=== PATIENT | female | born 1950 | race Caucasian/White ===

== ENCOUNTER 2017-05-08 00:58 | Observation (INO) | payer OTHER ==
[2017-05-08] VITALS (16 sets, daily range): BP systolic 99–161; BP diastolic 48–85; PULSE 45–78; RESP 12–24; TEMP 97.5–98; O2SAT 98–100
[~2017-05-08] VITALS: Ht 157.5 cm; Wt 57.3 kg
[2017-05-08] MEDS ORDERED: MULT-65 PO (01:11)
[2017-05-08] MEDS ORDERED: GLUC500T4 PO (01:11)
[2017-05-08] MEDS ORDERED: ASPI81CH37 CHEW (01:11)
[2017-05-08] MEDS ORDERED: NITR1SUB2 SL (01:11)
--- NOTE | 2017-05-08 01:21 | PD ---
HPI Chief Complaint: chest pain Time Seen by Provider: 01:08 Travel History International Travel<30 days: No Contact w/Intl Traveler<30days: No History of Present Illness HPI This is a 66-year-old female who presents to the emergency department with palpitations and subsequent chest tightness in the left side of her chest that lasted for about 15-20 minutes, constant, moderate severity, since subsiding. She says she felt a little bit sweaty when it occurred. She denies any shortness of breath or nausea. Her took her blood pressure twice and it was a little bit low. She took 81 mg of aspirin as well as a nitroglycerin pill that she had left over from 10 years ago. Then she developed a headache. She came to the emergency department. She has been told that her blood pressure has been running high. She denies any history of hyperlipidemia or diabetes. Both of her parents had heart attacks in their 60s. She denies smoking. She denies any recent long trips. Her last stress test was 10 years ago. [facility] Past Medical History Narrative Medical Borderline hypertension Social History Tobacco Use: No Allergies-Medications (Allergen,Severity, Reaction): Coded Allergies: No Known Allergies (Verified , 05/08/17) Reported Meds & Prescriptions Reported Meds & Active Scripts Active Reported Glucosamine-Chondroitin 500-400 Mg Tab 1 Tab PO DAILY Multi-Vitamin Daily (Multiple Vitamin) 1 Tab Tab 1 Tab PO DAILY Aspirin Low Dose (Aspirin) 81 Mg Chew 81 Mg CHEW DAILY Nitroglycerin SL (Nitroglycerin) 0.3 Mg Subl Unknown Dose SL DIRECTED PRN ONE TABLET UNDER THE TONGUE NEEDED FOR CHEST PAIN, MAY REPEAT EVERY FIVE MINUTES FOR A TOTAL OF 3 DOSES OR CALL 911 IF NO RELIEF Review of Systems Except as stated in HPI: all other systems reviewed are Neg Physical Exam Narrative GENERAL:Well appearing, no acute distress SKIN: Focused skin assessment warm and dry. HEAD: Atraumatic. Normocephalic. EYES: Pupils equal and round. No injection or drainage. ENT: Moist mucous membranes NECK: Trachea midline. CARDIOVASCULAR: Regular rate and rhythm. No murmur appreciated. Trace pitting edema bilaterally. RESPIRATORY: Clear to auscultation. Breath sounds equal bilaterally. GASTROINTESTINAL: Abdomen soft, non-tender, nondistended. MUSCULOSKELETAL: No obvious deformities. NEUROLOGICAL: Awake and alert. No obvious cranial nerve deficits. Moving all extremities. PSYCHIATRIC: Appropriate mood and affect; insight and judgment normal. Data Data Last Documented VS Vital Signs Date Time Temp Pulse Resp B/P Pulse Ox O2 Delivery O2 Flow Rate FiO2 05/08/17 01:58 58 16 136/70 100 Nasal Cannula 2 05/08/17 01:05 97.7 Orders Electrocardiogram (05/08/17 01:19) Complete Blood Count With Diff (05/08/17 01:19) Comprehensive Metabolic Panel (05/08/17 01:19) Troponin I (05/08/17 01:19) Chest, Single Ap (05/08/17 01:19) Ecg Monitoring (05/08/17 01:19) Bilateral Bp Monitoring (05/08/17:19) Iv Access Insert/Monitor (05/08/17:19) Oximetry (05/08/17 01:19) Oxygen Administration (05/08/17 01:19) Aspirin Chew (Aspirin Chew) (05/08/17 01:30) Sodium Chloride 0.9% Flush (Ns Flush) (05/08/17 01:30) Potassium Chloride Eff (K-Lyte Cl Eff) (05/08/17 02:15) Labs Laboratory Tests Test 05/08/17 01:20 White Blood Count 8.9 TH/MM3 Red Blood Count 4.43 MIL/MM3 Hemoglobin 13.6 GM/DL Hematocrit 40.0 % Mean Corpuscular Volume 90.2 FL Mean Corpuscular Hemoglobin 30.6 PG Mean Corpuscular Hemoglobin 33.9 % Concent Red Cell Distribution Width 12.6 % Platelet Count 287 TH/MM3 Mean Platelet Volume 8.1 FL Neutrophils (%) (Auto) 36.5 % Lymphocytes (%) (Auto) 49.4 % Monocytes (%) (Auto) 11.1 % Eosinophils (%) (Auto) 2.6 % Basophils (%) (Auto) 0.4 % Neutrophils # (Auto) 3.3 TH/MM3 Lymphocytes # (Auto) 4.4 TH/MM3 Monocytes # (Auto) 1.0 TH/MM3 Eosinophils # (Auto) 0.2 TH/MM3 Basophils # (Auto) 0.0 TH/MM3 CBC Comment DIFF FINAL Differential Comment Sodium Level 144 MEQ/L Potassium Level 3.3 MEQ/L Chloride Level 107 MEQ/L Carbon Dioxide Level 29.5 MEQ/L Anion Gap 8 MEQ/L Blood Urea Nitrogen 20 MG/DL Creatinine 0.72 MG/DL Estimat Glomerular Filtration 82 ML/MIN Rate Random Glucose 173 MG/DL Calcium Level 8.8 MG/DL Total Bilirubin 0.5 MG/DL Aspartate Amino Transf 30 U/L (AST/SGOT) Alanine Aminotransferase 33 U/L (ALT/SGPT) Alkaline Phosphatase 107 U/L Troponin I LESS THAN 0.02 NG/ML Total Protein 7.3 GM/DL Albumin 3.9 GM/DL MDM Medical Decision Making Medical Screen Exam Complete: Yes Emergency Medical Condition: Yes Interpretation(s) Afebrile, no tachycardia, hypertensive No leukocytosis Mild hypokalemia Troponin is normal EKG: Normal sinus rhythm, mild ST depression in the lateral leads Chest x-ray: No acute process Differential Diagnosis Acute coronary syndrome, anxiety, arrhythmia, pulmonary embolism, costochondritis Narrative Course This is a 66-year-old female who presents to the emergency department with chest discomfort involving her left chest associated with palpitations. She is placed in a monitor and an IV was established. Labs are reassuring. EKG is nonischemic. The description of her symptoms almost sounds like an arrhythmia that currently her EKG is normal. Patient will be kept on telemetry and admitted for serial cardiac enzymes and likely stress test in the morning. Diagnosis Primary Impression: Chest discomfort Admitting Information Admitting Physician Requests: Roxana Lanier MD May 08, 2017 01:21
[2017-05-08 01:30] LABS: AUTOMATED NEUTROPHIL # 3.3 TH/MM3 (1.8-7.7); BASOPHIL % 0.4 % (0.0-2.0); EOSINOPHIL # 0.2 TH/MM3 (0-0.4); EOSINOPHIL % 2.6 % (0.0-4.0); HEMO FLAGS DIFF FINAL; LYMPH % 49.4 % (9.0-44.0); LYMPHOCYTE # 4.4 TH/MM3 (1.0-4.8); MEAN CELL VOLUME 90.2 FL (80.0-100.0); MEAN CORPUSCULAR HEMOGLOBIN 30.6 PG (27.0-34.0); MEAN CORPUSCULAR HGB CONC 33.9 % (32.0-36.0); MONO % 11.1 % (0.0-8.0); NEUT % 36.5 % (16.0-70.0); PLATELET COUNT 287 TH/MM3 (150-450); RED BLOOD COUNT 4.43 MIL/MM3 (4.00-5.30); RED CELL DISTRIBUTION WIDTH 12.6 % (11.6-17.2); WHITE BLOOD COUNT 8.9 TH/MM3 (4.0-11.0)
[2017-05-08] MEDS ORDERED: ASPIRIN 81 MG CHEW TAB PO ONE (01:30)
[2017-05-08] MEDS ORDERED: SODIUM CHLORIDE 0.9% FLUSH 10 ML FLUSH IVF PRN (01:30)
[2017-05-08 01:47] LABS: CHLORIDE 107 MEQ/L (98-107); POTASSIUM 3.3 MEQ/L (3.5-5.1); SODIUM (NA) 144 MEQ/L (136-145)
--- NOTE | 2017-05-08 01:48 | RADRPT ---
EXAM DATE/TIME: 05/08/2017 01:29 [facility] COMPARISON: No previous studies available for comparison. INDICATIONS : Chest pain. MEDICAL HISTORY : None. SURGICAL HISTORY : None. ENCOUNTER: Initial ACUITY: 1 day PAIN SCORE: 7/10 LOCATION: Bilateral chest FINDINGS: A single view of the chest demonstrates the lungs to be symmetrically aerated without evidence of mas s, infiltrate or effusion. The cardiomediastinal contours are unremarkable. Osseous structures are intact. CONCLUSION: No acute disease. Ian Petersen MD on May 08, 2017 at 1:46 Board Certified Radiologist. This report was verified electronically.
[2017-05-08 01:51] LABS: ANION GAP 8 MEQ/L (5-15); BICARBONATE 29.5 MEQ/L (21.0-32.0); BLOOD UREA NITROGEN 20 MG/DL (7-18)
[2017-05-08 01:54] LABS: ALT (GPT) 33 U/L (10-53); AST (GOT) 30 U/L (15-37); GLOMERULAR FILTRATION RATE 82 ML/MIN (>89)
[2017-05-08 01:55] LABS: TOTAL BILIRUBIN ADULT 0.5 MG/DL (0.2-1.0)
[2017-05-08 01:56] LABS: ALKALINE PHOSPHATASE 107 U/L (45-117)
[2017-05-08] MEDS ORDERED: POTASSIUM CHLORIDE 25 MEQ EFFERVESCENT TAB PO ONE (02:15)
[2017-05-08] MEDS ORDERED: ONDANSETRON HCL 4 MG/2 ML VIAL IV PRN (07:45)
[2017-05-08] MEDS ORDERED: MORPHINE SULFATE 4 MG/ML INJ IV PRN (07:45)
[2017-05-08] MEDS ORDERED: ACETAMINOPHEN/HYDROcodone 325 MG/7.5 MG TAB PO PRN (07:45)
[2017-05-08] MEDS ORDERED: SODIUM CHLORIDE 0.9% FLUSH 10 ML FLUSH IV FLUSH PRN (07:45)
[2017-05-08] MEDS ORDERED: NITROGLYCERIN 0.4 MG SL 25 TABS/BTL SL PRN (07:45)
[2017-05-08] MEDS ORDERED: ACETAMINOPHEN 500 MG CPLT PO PRN (07:45)
[2017-05-08] MEDS: SODIUM CHLORIDE 0.9% FLUSH 10 ML FLUSH IV FLUSH SCH ×2 (08:16→23:55)
[2017-05-08] MEDS: MULTIVITAMIN TAB PO SCH (08:19)
[2017-05-08] MEDS: SODIUM CHLOR 0.9% 1000 ML INJ 1,000 ML IV SCH ×3 (08:19→23:51)
--- NOTE | 2017-05-08 10:44 | HHI.HP ---
HPI Service [facility] Primary [facility] Physician No Primary Care Physician Admission Diagnosis chest pain Diagnoses: (1) Palpitations Diagnosis: Principal (2) Chest tightness Diagnosis: Principal (3) Hypokalemia Diagnosis: Principal (4) Prerenal azotemia Diagnosis: Principal Chief Complaint: "palpitations, chest tightness" Travel History International Travel<30 Days: No Contact w/Intl Traveler <30 Da: No Traveled to Known Affected Are: No History of Present Illness Written by Corry Richey PA-C acting as scribe for on Dr. Donohue at ~1030. 66-year-old female with no significant medical history presents with complaint of heart palpitations and chest tightness. The patient states at 12: 30 AM this morning she started to feel heart palpitations and she states her blood pressure was dropping although does not recall what it was at the time. She states her chest became tight indicating over the left side of the chest lasting until 2 AM. She states the chest was sore after the episode of palpitations. She took some nitroglycerin that she had at home which she states helps slow the heart down. It is unclear if she was actually lightheaded but she states when she came in to the ED her eyes were not focused. She does admit to diaphoresis but denies any nausea or vomiting. She has no history of arrhythmias. She denies any sore throat, cough, abdominal pain, or diarrhea. She denies any history of diabetes, hypertension, hyperlipidemia, or thyroid disease. The patient states she did treadmill stress test in 2005 but was pushed too hard on the treadmill; she states her BP went up to 200/90. She did have a cardiac catheterization in 2006 which showed normal coronaries and this was performed due to abnormal stress test. Review of Systems Except as stated in HPI: all other systems reviewed are Neg Past Family Social History Past Medical History No significant medical history Past Surgical History Tumor removal from finger Reported Medications Reported Meds & Active Scripts Active Reported Apple cider tablets Glucosamine-Chondroitin 500-400 Mg Tab 1 Tab PO DAILY Multi-Vitamin Daily (Multiple Vitamin) 1 Tab Tab 1 Tab PO DAILY Aspirin Low Dose (Aspirin) 81 Mg Chew 81 Mg CHEW DAILY Nitroglycerin SL (Nitroglycerin) 0.3 Mg Subl Unknown Dose SL DIRECTED PRN ONE TABLET UNDER THE TONGUE NEEDED FOR CHEST PAIN, MAY REPEAT EVERY FIVE MINUTES FOR A TOTAL OF 3 DOSES OR CALL 911 IF NO RELIEF Allergies: Coded Allergies: No Known Allergies (Verified , 05/08/17) Family History Mother and Father with coronary artery disease, in their 60s. Father with hypertension. Grandmother of massive NM at age of 62. No history of sudden at a young age. Social History Patient denies smoking cigarettes. Denies alcohol use. Physical Exam Vital Signs Vital Signs Date Time Temp Pulse Resp B/P Pulse Ox O2 Delivery O2 Flow Rate FiO2 05/08/17 07:06 Room Air 05/08/17 07:06 97.5 68 14 118/58 99 Room Air 05/08/17 06:18 53 12 102/48 98 Room Air 05/08/17 04:42 56 16 99/55 100 Room Air 05/08/17 03:15 60 17 124/68 100 Room Air 05/08/17 01:58 58 16 136/70 100 Nasal Cannula 2 05/08/17 01:32 100 Nasal Cannula 2 05/08/17 01:28 72 140/77 129/75 05/08/17 01:05 97.7 78 17 161/85 100 Physical Exam GENERAL: This is a pleasant well-nourished, well-developed patient, in no apparent distress. SKIN: No rashes, ecchymoses or lesions. Warm and dry. HEAD: Atraumatic. Normocephalic. EYES: No scleral icterus. No injection or drainage. NECK: Trachea midline. CARDIOVASCULAR: Regular rate and rhythm without murmurs, gallops, or rubs. RESPIRATORY: Clear to auscultation. Breath sounds equal bilaterally. No wheezes , rales, or rhonchi. GASTROINTESTINAL: Normoactive bowel sounds. Abdomen soft, non-tender, nondistended. No guarding. MUSCULOSKELETAL: No lower extremity edema bilaterally. Distal pulses intact. No deformities noted. NEUROLOGICAL: Awake and alert. Motor grossly within normal limits. Normal speech. PSYCHIATRIC: Normal mood and affect. Laboratory Laboratory Tests Test 05/08/17 05/08/17 01:20 07:00 White Blood Count 8.9 Red Blood Count 4.43 Hemoglobin 13.6 Hematocrit 40.0 Mean Corpuscular Volume 90.2 Mean Corpuscular Hemoglobin 30.6 Mean Corpuscular Hemoglobin 33.9 Concent Red Cell Distribution Width 12.6 Platelet Count 287 Mean Platelet Volume 8.1 Neutrophils (%) (Auto) 36.5 Lymphocytes (%) (Auto) 49.4 Monocytes (%) (Auto) 11.1 Eosinophils (%) (Auto) 2.6 Basophils (%) (Auto) 0.4 Neutrophils # (Auto) 3.3 Lymphocytes # (Auto) 4.4 Monocytes # (Auto) 1.0 Eosinophils # (Auto) 0.2 Basophils # (Auto) 0.0 CBC Comment DIFF FINAL Differential Comment Sodium Level 144 Potassium Level 3.3 4.0 Chloride Level 107 Carbon Dioxide Level 29.5 Anion Gap 8 Blood Urea Nitrogen 20 Creatinine 0.72 Estimat Glomerular Filtration 82 Rate Random Glucose 173 Calcium Level 8.8 Total Bilirubin 0.5 Aspartate Amino Transf 30 (AST/SGOT) Alanine Aminotransferase 33 (ALT/SGPT) Alkaline Phosphatase 107 Troponin I LESS THAN 0.02 0.03 Total Protein 7.3 Albumin 3.9 Total Creatine Kinase 174 Result Diagram: 05/08/17 0120 05/08/17 0700 Imaging Last Impressions Chest X-Ray 05/08/17 0119 Signed Impressions: Service Date/Time: Monday, May 08, 2017 01:29 - CONCLUSION: No acute disease. Ian Petersen MD Assessment and Plan Assessment and Plan 66-year-old female with: Heart palpitations: Started earlier this morning. EKGs 2 personally interpreted with sinus rhythm and no ischemic changes. The patient does QTc close to upper normal limit. Palpitations could be due to hypokalemia causing long QT, anxiety, or less likely paroxysmal A.Fib. -Holter monitor ordered -TSH level -Mg level -Cardiology consult Chest tightness: Chest tightness seems to be related to palpitations. BP elevated at 161/85 on arrival. EKGs as above. Chest x-ray normal. First troponin less than 0.02. Second troponin 0.03. Patient received 162 mg of aspirin in the ED this morning. -Additional EKG, troponin, CK-MB ordered for 1300 hrs. -325 mg daily aspirin starting tomorrow -Nitroglycerin/[place]/morphine prn chest pain as indicated -Telemetry -Will defer stress testing decision to cardiology Hypokalemia: Mild 3.3-->4.0 after 25 mEq KCl in the ED. -Monitor and replete as needed. Check Mg level as indicated above. Pre-renal azotemia: BUN/Cr 20/0.72. -IV NS started at 60 mL/hr this morning. Can discontinue if patient hydrates adequately as no longer NPO at this time. -Repeat am BMP DVT prevention: SCDs. Discussed Condition With patient, This note was transcribed by [email or web address] [[email or web address] I, Dr. Roxi Donohue personally performed the history, physical exam, and medical decision making; and confirmed the accuracy of the information in the transcribed note. Authenticated by Dr. Roxi Donohue on 05/08/17 at 12:02. Corry Richey May 08, 2017 10:44 Roxi Donohue MD May 08, 2017 12:02
[2017-05-08 11:49] LABS: MAGNESIUM 2.1 MG/DL (1.5-2.5)
[2017-05-08 13:51] LABS: CREATINE KINASE 152 U/L (26-192)
[2017-05-08 14:04] LABS: CKMB 3.4 NG/ML (0.5-3.6)
[2017-05-09 00:20] VITALS: PULSE 47; RESP 15; TEMP 98
[2017-05-09 04:00] VITALS: BP 119/64; PULSE 49; RESP 16; TEMP 98; O2SAT 98
--- NOTE | 2017-05-09 05:13 | MB ---
cc: TALAT CRUZ MD DATE OF CONSULTATION May 08, 2017 REASON FOR CONSULTATION Palpitations and atypical chest pain. HISTORY OF PRESENT ILLNESS The patient is a pleasant 66-year-old woman in no known cardiac history but a history of hypertension as well as anxiety, who does admit to periodic panic attacks. The patient was sitting down to watch a movie when she felt her heart start to race. Her took her blood pressures and found her blood pressures to be low in the 90s systolic. He does not recall what the heart rate was at the time but believes it was within the normal range. The patient describes feeling chest tightness and a foggy sensation in her head and a constellation of these signs and symptoms caused them to present to the emergency room where she was admitted to observation. She is currently asymptomatic, denying any residual sensation of palpitations or chest pain, shortness breath, lightheadedness or dizziness. PAST MEDICAL HISTORY 1. Remote cardiac catheterization in 2005 showing normal coronary arteries. 2. Anxiety. ALLERGIES No known drug allergies. PHYSICAL EXAMINATION VITAL SIGNS: Afebrile, pulse 61, respiratory rate 16, BP 121/61, sating 100 on room air. GENERAL: Pleasant well-appearing woman in no distress. NECK: No JVD. LUNGS: Clear auscultation bilaterally. CARDIOVASCULAR: Regular rate and rhythm. No murmurs appreciated. ABDOMEN: Benign. EXTREMITIES: No edema. LABORATORY DATA Sodium 144, potassium 3.3 up to 4.0, chloride 107, bicarb 29.7, BUN 20, creatinine 0.72, glucose 173. Cardiac enzymes are negative x 3. EKG Sinus rhythm with no significant ST or T-wave changes. IMPRESSION AND RECOMMENDATIONS 1. Chest pain: The patient's chest pain is fairly atypical. Her EKG looks good and her cardiac enzymes are normal. I will have her undergo a nuclear stress test tomorrow. 1. Palpitations: The patient describes what sounds most likely to be sinus tachycardia. However, an atrial dysrhythmia is not out of the question. We will observe her on telemetry and potentially she could have an outpatient Holter monitor particularly if symptoms persist. If her nuclear stress test is normal and her monitor does not show any significant dysrhythmia overnight, she could likely be discharged home tomorrow. Thanking you for the opportunity to participate in this patient's care. MD KLEBER Perea /8:05 PM /5:09 AM
[2017-05-09 05:39] LABS: POTASSIUM 3.9 MEQ/L (3.5-5.1)
[2017-05-09 05:43] LABS: BICARBONATE 30.3 MEQ/L (21.0-32.0)
[2017-05-09 07:00] VITALS: PULSE 55
[2017-05-09 08:00] VITALS: BP 131/69; PULSE 46; RESP 29; TEMP 97.7
[2017-05-09] MEDS ORDERED: ASPIRIN EC 325 MG TABEC PO SCH (09:00)
[2017-05-09] MEDS: MULTIVITAMIN TAB PO SCH (09:00)
[2017-05-09] MEDS ORDERED: REGADENOSON INJ 0.4 MG/5 ML SYR IV ONE (10:07)
[2017-05-09] MEDS ORDERED: DEXTROSE 50% IN WATER 50 ML VIAL(D50) IV PUSH PRN (10:15)
[2017-05-09] MEDS ORDERED: GLUCAGON 1 MG/ML VIAL OTHER PRN (10:15)
[2017-05-09] MEDS ORDERED: INSULIN NovoLIN REGULAR SUPPLEMENTAL SCALE SQ SCH (11:00)
--- NOTE | 2017-05-09 11:17 | RADRPT ---
EXAM DATE/TIME: 05/09/2017 09:49 [facility] COMPARISON: No previous studies available for comparison. INDICATIONS : Substernal chest pain with palpitations. Angina. DOSE: 25.9 mCi Tc99m Myoview at stress. 8.1 mCi Tc99m Myoview at rest. 0.4 mg Lexiscan STRESS SYMPTOMS: Abdominal pain. EJECTION FRACTION: 67% MEDICAL HISTORY : None SURGICAL HISTORY : Hysterectomy. section. ENCOUNTER: Initial ACUITY: 1 day PAIN SCALE: 5/10 LOCATION: Substernal chest TECHNIQUE: The patient underwent pharmacologic stress with infusion of prescribed dose. Continuous ECG tracing was monitored during stress. Gated SPECT imaging was performed after stress and conventional SPECT i maging was performed at rest. The examination was performed on a SPECT/CT scanner, both attenuation and non-corrected datasets were reviewed. FINDINGS: DISTRIBUTION: The maximum perfused segment at stress is in the <mid anterior lateral wall. PERFUSION STUDY: The pattern of perfusion at stress is within normal limits. Some mild decreased perfusion to the sept um however motion is entirely normal. GATED STUDY: There is intact wall motion and thickening without hypokinetic or dyskinetic segments. CONCLUSION: Normal examination. RISK CATEGORY: Low (<1% Annual Mortality Rate) Amadeo Byrd MD on May 09, 2017 at 11:14 Board Certified Radiologist. This report was verified electronically.
--- NOTE | 2017-05-09 11:34 | HHI.PR ---
Subjective Remarks She just came from stress test nuclear test No chest pain at this point no palpitation she is doing well Cardiology recommended discharge and follow as an outpatient if stress test is negative Objective Vitals Vital Signs Date Time Temp Pulse Resp B/P Pulse Ox O2 Delivery O2 Flow Rate FiO2 05/09/17 08:00 97.7 46 29 131/69 05/09/17 07:00 55 05/09/17 04:00 98.0 49 16 119/64 98 05/09/17 00:20 98.0 47 15 05/08/17 23:00 59 05/08/17 23:00 98.0 45 15 117/60 05/08/17 20:00 58 20 05/08/17 19:28 98.0 58 20 142/63 99 05/08/17 19:00 60 22 05/08/17 18:00 58 24 05/08/17 17:10 61 05/08/17 16:17 54 24 141/66 05/08/17 15:51 98.0 55 16 122/61 100 Room Air 05/08/17 15:51 Room Air 05/08/17 11:47 97.9 53 16 125/61 99 Room Air I/O 05/08/17 05/08/17 05/08/17 05/09/17 05/09/17 05/09/17 06:59 14:59 22:59 06:59 14:59 22:59 Intake Total 620 ml Output Total 500 ml Balance 120 ml Intake Oral 420 ml IV Total 200 ml Output Urine Total 500 ml # Voids 1 3 # Bowel Movements 0 Result Diagram: 05/08/17 0120 05/09/17 0440 Objective Remarks GENERAL: This is a well-nourished, well-developed patient, in no apparent distress. SKIN: No rashes, warm and dry HEAD: Atraumatic. Normocephalic. EYES: Pupils equal round and reactive. Extraocular motions intact. No scleral icterus. ENT: Nose without bleeding, or drainage, Airway patent. NECK: Trachea midline. Supple CARDIOVASCULAR: Regular rate and rhythm without murmurs, gallops, or rubs. RESPIRATORY: Fair air entry bilaterally. No wheezes, rales, or rhonchi. GASTROINTESTINAL: Abdomen soft, non-tender, nondistended. Positive bowel sounds MUSCULOSKELETAL: Extremities without clubbing, cyanosis, or edema. Pedal pulses appreciated NEUROLOGICAL: Awake and alert. Moves all extremity. Normal speech.no focal neurological deficit A/P Problem List: (1) Palpitations ICD Code: R00.2 Status: Acute (2) Chest tightness ICD Code: R07.89 Status: Acute (3) Hypokalemia ICD Code: E87.6 Status: Acute (4) Prerenal azotemia ICD Code: R79.89 Status: Acute Assessment and Plan 66-year-old female with: Heart palpitations: Started earlier this morning. EKGs 2 personally interpreted with sinus rhythm and no ischemic changes. The patient does QTc close to upper normal limit. Palpitations could be due to hypokalemia causing long QT, anxiety, or less likely paroxysmal A.Fib. -Holter monitor ordered -TSH and MG level reviewed -Cardiology consult appreciated recommended nuclear stress test which came back negative Chest tightness: Chest tightness seems to be related to palpitations. BP elevated at 161/85 on arrival. EKGs as above. Chest x-ray normal. First troponin less than 0.02. Second troponin 0.03. Patient received 162 mg of aspirin in the ED this morning. -Additional EKG, troponin, CK-MB ordered for 1300 hrs. -325 mg daily aspirin starting tomorrow -Nitroglycerin/[place]/morphine prn chest pain as indicated -Telemetry Hypokalemia: Replaced Pre-renal azotemia: BUN/Cr 20/0.72. -IV NS started at 60 mL/hr this morning. Can discontinue if patient hydrates adequately as no longer NPO at this time. -Repeat am BMP DVT prevention: SCDs. Addendum: Stress test came back negative, cardiology recommended discharge and follow up as an outpatient Discharge Planning Discharge patient to home Condition on discharge: Improved Healthy heart Diet as tolerated Ad Shannan activity Rx written: See med rec Follow-up with primary care physician and cardiology in one week Roxi Donohue MD May 09, 2017 11:34
[2017-05-09 12:00] VITALS: BP 131/55; PULSE 55; RESP 14; TEMP 98.4; O2SAT 100
--- NOTE | 2017-05-09 19:53 | EKG ---
Date Performed: 05/08/2017 Time Performed: 07:06:34 PTAGE: 66 years EKG: SINUS BRADYCARDIA BORDERLINE ECG PREVIOUS TRACING 05/08/2017 01.08 Since previous tracing, no significant change noted DOCTOR: Deann Torrez Interpretating Date/Time 05/09/2017 19:52:09
--- NOTE | 2017-05-09 19:53 | EKG ---
Date Performed: 05/08/2017 Time Performed: 01:08:53 PTAGE: 66 years EKG: Sinus rhythm MINIMAL VOLTAGE CRITERIA FOR LVH, CONSIDER NORMAL VARIANT BORDERLINE ECG NO PREVIOUS TRACING DOCTOR: Deann Torrez Interpretating Date/Time 05/09/2017 19:51:41
--- NOTE | 2017-05-09 19:54 | EKG ---
Date Performed: 05/08/2017 Time Performed: 13:10:23 PTAGE: 66 years EKG: SINUS BRADYCARDIA BORDERLINE ECG PREVIOUS TRACING : 05/08/2017 07.06 Since previous tracing, no significant change noted DOCTOR: Deann Torrez Interpretating Date/Time 05/09/2017 19:52:22
--- NOTE | 2017-05-10 19:43 | HM ---
Date Performed: 05/08/2017 Time Performed: 16:09:00 HOOKUP DATE: 05/08/17 04:09:00 PM Sun ANALYSIS START TIME: 05/08/2017 4:14:00 PM ANALYSIS END TIME: 05/09/2017 12:23:01 PM PATIENT AGE: 66 PATIENT HEIGHT PATIENT WEIGHT DRUG LIST PATIENT DIAGNOSIS TEST NARRATIVE: The patient's average heart rate was 54 BPM. No episodes of tachycardia wer e noted. Heart rates less than 50 BPM were noted 54% of the time. No pauses exceeding 2.0 second s were noted. 9 ventricular ectopics, which represented < 1% of the total beat count, were noted. The highest ventricular ectopic frequency occurred from 05:00 PM to 06:00 PM Sun. During this time 1 VE(s) occurred. Ventricular ectopics were observed as 9 isolated beat(s) only. No couplets or ru ns were noted. 21 supraventricular ectopics, which represented < 1% of the total beat count, were noted. The highest supraventricular ectopic frequency occurred from 02:00 AM to 03:00 AM Mon. Valerie parker this time 7 SVE(s) occurred. No episodes of ST depression (defined as -1.0 mm or more) were no hallie in channel 1. No episodes of ST depression (defined as -1.0 mm or more) were noted in channel 2. No episodes of ST depression (defined as -1.0 mm or more) were noted in channel 3. PATIENT DIARY WA S NOT RETURNED WITH THE HOLTER MONITOR. TEST INTERPRETATION: 1) Sinus rhythm with sinus bradycardia 2) Heart rate less than 50bpm 54% of the time 3) No pauses, no AV blocks note d 4) Rare PVC/PAC 5) No ST depressions noted 6) No diary of symptoms available Signed by : Donnie Mcwilliams
== END 2017-05-09 13:24 | disposition home or self-care (01) ==
LOC: PHED 00:58 → PHEDA 02:25 → PHEDH 06:21 → PHICU 16:10
PROVIDERS: ADMIT Hospitalist; ATTEND Hospitalist
DX: R00.2 Palpitations (principal); R07.89 Other chest pain; E87.6 Hypokalemia; R79.89 Other specified abnormal findings of blood chemistry; R61 Generalized hyperhidrosis; R51 Headache; R00.1 Bradycardia, unspecified; I10 Essential (primary) hypertension; I20.9 Angina pectoris, unspecified; F41.0 Panic disorder [episodic paroxysmal anxiety]; F41.9 Anxiety disorder, unspecified; Z82.49 Family history of ischemic heart disease and other diseases of the circulatory system
CPT/HCPCS: 71010; 78452; 80048; 80053; 82550; 82552; 83735; 84132; 84443; 84484; 85025; 93005; 93017; 93225; 93226; 99285; A9502; G0378; J2785; J7030